=== PATIENT | male | born 1955 | race Caucasian/White ===

== ENCOUNTER 2022-01-14 06:13 | Day surgery (SDC) | payer MEDICARE, OTHER ==
[~2022-01-14] VITALS: Ht 180.3 cm; Wt 93.5 kg
[2022-01-14] MEDS ORDERED: normal saline 1000ml 1,000 ML IV SCH (06:35)
[2022-01-14 07:05] VITALS: BP 147/55
[2022-01-14] MEDS ORDERED: CARV-50 PO (07:39)
[2022-01-14] MEDS ORDERED: CLOP75TA34 PO (07:39)
[2022-01-14] MEDS ORDERED: PHO667C PO (07:39)
[2022-01-14] MEDS ORDERED: ATOR40TA PO (07:39)
[2022-01-14] MEDS ORDERED: PANT40TA54 PO (07:39)
[2022-01-14] MEDS ORDERED: ONDA-103 PO (07:39)
[2022-01-14] MEDS ORDERED: SPIR25TA5 PO (07:39)
[2022-01-14] MEDS ORDERED: ASPI-1265 PO (07:39)
[2022-01-14] MEDS ORDERED: FURO80TA3 PO (07:39)
[2022-01-14] MEDS ORDERED: LEVO300T6 PO (07:39)
[2022-01-14] MEDS ORDERED: LOSA25TA96 PO (07:39)
[2022-01-14 07:45] LABS: BASOPHILS # (AUTO) 0.1 X10'3 (0-0.2); BASOPHILS % (AUTO) 1.1 % (0-1); EOSINOPHILS # (AUTO) 0.2 X10'3 (0-0.9); EOSINOPHILS % (AUTO) 3.6 % (0-6); HEMATOCRIT 31.2 % (42.0-52.0); HEMOGLOBIN 10.4 g/dl (14.0-17.9); LYMPHOCYTES # (AUTO) 0.9 X10'3 (1.1-4.8); LYMPHOCYTES % (AUTO) 12.7 % (21-51); MEAN CORPUSCULAR HEMOGLOBIN 32.1 PG (27.0-31.0); MEAN CORPUSCULAR HGB CONC 33.4 g/dL (33.0-36.5); MEAN PLATELET VOLUME 10.3 FL (7.4-10.4); MONOCYTES # (AUTO) 0.5 X10'3 (0-0.9); MONOCYTES % (AUTO) 7.4 % (2-12); NEUTROPHILS # (AUTO) 5.2 X10'3 (1.8-7.7); NEUTROPHILS % (AUTO) 75.2 % (42-75); PLATELET COUNT 117 X10'3 (140-440); RED BLOOD COUNT 3.25 X10'6 (4.70-6.10); RED CELL DISTRIBUTION WIDTH 13.6 % (11.5-14.5); WHITE BLOOD COUNT 6.9 X10'3 (4.5-11.0)
[2022-01-14 07:55] LABS: ALBUMIN 3.5 G/DL (3.4-5.0); ANION GAP 7 (8-16); BLOOD UREA NITROGEN 33 MG/DL (7-18); BUN/CREATININE RATIO 7.6 (5.4-32.0); CALCIUM 8.7 MG/DL (8.5-10.1); CHLORIDE 104 MMOL/L (99-107); CREATININE 4.36 MG/DL (0.60-1.10); GLUCOSE 122 MG/DL (70-104); POTASSIUM 4.9 MMOL/L (3.5-5.1); SODIUM 140 MMOL/L (135-145); TOTAL CARBON DIOXIDE 28.9 MMOL/L (24-32); eGFR 14 ML/MIN
[2022-01-14] MEDS ORDERED: LIDOcaine 1%/PF 5ML 10 MG/ML VIAL ONE (08:51)
[2022-01-14] MEDS ORDERED: midazolam 1 mg/ML 2ml injection ONE ×2 (08:51→09:49)
[2022-01-14] MEDS ORDERED: fentaNYL/PF 50MCG/1 ML 2ML syringe ONE ×2 (08:52→09:52)
[2022-01-14] MEDS ORDERED: heparin 1,000 UNITS/NS 500ml 500 ML ONE (08:53)
[2022-01-14] MEDS ORDERED: iohexol 300mg/ml 100ml inj. ONE (08:53)
[2022-01-14 10:27] VITALS: BP 171/73
[2022-01-14 10:43] VITALS: BP 182/43
[2022-01-14 10:54] VITALS: BP 181/62
[2022-01-14 10:57] VITALS: BP 176/62
[2022-01-14 11:12] VITALS: BP 181/62
== END 2022-01-14 11:25 | disposition home or self-care (01) ==
LOC: SSTAY O 06:13
PROVIDERS: ATTEND Preventive Medicine Aerospace Medicine
DX: T82.590A Other mechanical complication of surgically created arteriovenous fistula, initial encounter (principal); N18.6 End stage renal disease; Y83.2 Surgical operation with anastomosis, bypass or graft as the cause of abnormal reaction of the patient, or of later complication, without mention of misadventure at the time of the procedure; Y92.89 Other specified places as the place of occurrence of the external cause
CPT/HCPCS: 36415; 36901; 80048; 85025; 85610; 99152; 99153; C1769; C1894; J1644; J2250; J3010; J3490; J7030; Q9967

== ENCOUNTER 2022-05-31 10:44 | Day surgery (SDC) | payer MEDICARE, OTHER ==
[~2022-05-31] VITALS: Ht 180.3 cm; Wt 98.1 kg
[~2022-05-31 10:44] MED LIST: ASPI-1265 PO; ATOR40TA PO; CARV-50 PO; CLOP75TA34 PO; FURO80TA3 PO; LEVO300T6 PO; LOSA25TA96 PO; ONDA-103 PO; PANT40TA54 PO; PHO667C PO; SPIR25TA5 PO
[2022-05-31] MEDS ORDERED: LIDOcaine 1%/PF 5ML 10 MG/ML VIAL ONE ×2 (11:09→11:10)
[2022-05-31] MEDS ORDERED: heparin 1,000unit/ml 10ml vial 10 ML ONE (11:12)
[2022-05-31 11:16] VITALS: BP 148/76
[2022-05-31] MEDS ORDERED: normal saline 1000ml 1,000 ML IV PRN (11:30)
[2022-05-31 13:40] VITALS: BP 202/95
== END 2022-05-31 13:40 | disposition home or self-care (01) ==
LOC: SSTAY O 10:44
PROVIDERS: ATTEND Radiology Vascular & Interventional Radiology
DX: N18.6 End stage renal disease (principal); Z79.01 Long term (current) use of anticoagulants; Z79.899 Other long term (current) drug therapy; Z98.890 Other specified postprocedural states; Z79.82 Long term (current) use of aspirin
CPT/HCPCS: 36558; 76937; 77001; C1750; C1769; C1894; J1644; J3490; J7030; A4620; A9270

== ENCOUNTER 2022-10-28 08:25 | Day surgery (SDC) | payer MEDICARE, OTHER ==
[~2022-10-28] VITALS: Ht 175.3 cm; Wt 109.5 kg
[~2022-10-28 08:25] MED LIST changes: -SPIR25TA5 PO
[2022-10-28 09:00] VITALS: BP 194/112
[2022-10-28] MEDS ORDERED: normal saline 1000ml 1,000 ML IV PRN (09:10)
--- NOTE | 2022-10-28 09:15 | NUR ---
Pt BP elevated r/t no recent dialysis and not taking BP meds today. In addition, patient took his Plavix yesterday evening. Patient also does not have a ride home today. Called over to [facility] to let them know and we can proceed with no sedation.
[2022-10-28] MEDS ORDERED: CALC500T11 PO (09:36)
[2022-10-28] MEDS ORDERED: SPIR25TA5 PO (09:36)
[2022-10-28 09:49] LABS: BASOPHILS # (AUTO) 0.1 X10'3 (0-0.2); BASOPHILS % (AUTO) 1.1 % (0-1); EOSINOPHILS # (AUTO) 0.3 X10'3 (0-0.9); EOSINOPHILS % (AUTO) 4.4 % (0-6); HEMATOCRIT 36.5 % (42.0-52.0); LYMPHOCYTES # (AUTO) 1.1 X10'3 (1.1-4.8); MEAN CORPUSCULAR HEMOGLOBIN 32.7 PG (27.0-31.0); MEAN CORPUSCULAR HGB CONC 32.9 g/dL (33.0-36.5); MEAN CORPUSCULAR VOLUME 99.4 FL (78-98); MEAN PLATELET VOLUME 9.8 FL (7.4-10.4); MONOCYTES # (AUTO) 0.6 X10'3 (0-0.9); MONOCYTES % (AUTO) 8.4 % (2-12); NEUTROPHILS % (AUTO) 70.1 % (42-75); PLATELET COUNT 138 X10'3 (140-440); RED BLOOD COUNT 3.67 X10'6 (4.70-6.10); RED CELL DISTRIBUTION WIDTH 16.3 % (11.5-14.5); WHITE BLOOD COUNT 7.1 X10'3 (4.5-11.0)
[2022-10-28 09:57] LABS: ALBUMIN 3.8 G/DL (3.4-5.0); ANION GAP 10 (8-16); BLOOD UREA NITROGEN 37 MG/DL (7-18); BUN/CREATININE RATIO 5.6 (5.4-32.0); CALCIUM 8.5 MG/DL (8.5-10.1); CHLORIDE 96 MMOL/L (99-107); CREATININE 6.66 MG/DL (0.60-1.10); GLUCOSE 101 MG/DL (70-104); POTASSIUM 4.6 MMOL/L (3.5-5.1); SODIUM 137 MMOL/L (135-145); TOTAL CARBON DIOXIDE 30.8 MMOL/L (24-32); eGFR 8 ML/MIN
[2022-10-28] MEDS ORDERED: heparin 1,000 UNITS/NS 500ml 500 ML ONE (10:56)
[2022-10-28] MEDS ORDERED: iohexol 300mg/ml 100ml inj. ONE (10:56)
[2022-10-28] MEDS ORDERED: hydrALAZINE 20mg/ml inj. IV ONE (11:30)
[2022-10-28 12:05] VITALS: BP 188/100
== END 2022-10-28 12:15 | disposition home or self-care (01) ==
LOC: SSTAY O 08:25
PROVIDERS: ATTEND Radiology Vascular & Interventional Radiology
DX: T82.898A Other specified complication of vascular prosthetic devices, implants and grafts, initial encounter (principal); I12.0 Hypertensive chronic kidney disease with stage 5 chronic kidney disease or end stage renal disease; N18.6 End stage renal disease; E78.5 Hyperlipidemia, unspecified; E03.9 Hypothyroidism, unspecified; Z79.01 Long term (current) use of anticoagulants; Z79.899 Other long term (current) drug therapy; Z79.82 Long term (current) use of aspirin; Y83.2 Surgical operation with anastomosis, bypass or graft as the cause of abnormal reaction of the patient, or of later complication, without mention of misadventure at the time of the procedure; Y92.89 Other specified places as the place of occurrence of the external cause
CPT/HCPCS: 36415; 36901; 80048; 82948; 85025; 85610; C1769; C1894; J0360; J1644; J7030; Q9967; A4620